=== PATIENT | male | born 1990 | race Caucasian/White ===

== ENCOUNTER → 2019-12-04 13:51 | Outpatient (BNVA) | payer SELFPAY | PROVIDERS: Visit Provider Family Medicine | DX: I10 Essential (primary) hypertension (principal); R42 Dizziness and giddiness; Z13.1 Encounter for screening for diabetes mellitus; Z83.3 Family history of diabetes mellitus; Z13.220 Encounter for screening for lipoid disorders; Z13.6 Encounter for screening for cardiovascular disorders | CPT/HCPCS: 80053; 80061; 83036 ==

== ENCOUNTER → 2020-03-18 17:15 | Outpatient (BNVA) | payer SELFPAY | PROVIDERS: Visit Provider Family Medicine | DX: R74.01 Elevation of levels of liver transaminase levels (principal); J30.9 Allergic rhinitis, unspecified; H65.193 Other acute nonsuppurative otitis media, bilateral; F41.1 Generalized anxiety disorder; I10 Essential (primary) hypertension; E78.5 Hyperlipidemia, unspecified; J30.1 Allergic rhinitis due to pollen; G47.10 Hypersomnia, unspecified | CPT/HCPCS: 80053; 80074; 86706 ==